=== PATIENT | male | born 1935 | race Caucasian/White ===

== ENCOUNTER 2024-05-06 09:57 | Inpatient (IN) | payer OTHER, BC ==
[~2024-05-06] VITALS: Ht 172.7 cm; Wt 57.3 kg
[~2024-05-06 09:57] MED LIST: LISI20TA30 PO; NOR10 PO; ROSU10TA2 PO
[2024-05-06 10:00] VITALS: BP_SYST 144; PULSE 64; RESP 18; TEMP 97.6; O2SAT 98
[2024-05-06 10:26] LABS: BASOPHILS # (AUTO) 0.1 K/uL (0.0-0.2); BASOPHILS % (AUTO) 0.6 % (0.0-2.0); EOSINOPHILS # (AUTO) 0.3 K/uL (0.0-0.4); EOSINOPHILS % (AUTO) 3.1 % (0.0-4.0); HEMATOCRIT 42.1 % (36-54); HEMOGLOBIN 13.8 g/dL (14.0-18.0); LYMPHOCYTES # (AUTO) 0.8 K/uL (1.0-5.5); LYMPHOCYTES % (AUTO) 8.5 % (20.5-51.5); MEAN CORPUSCULAR HEMOGLOBIN 32 pg (27-31); MEAN CORPUSCULAR HGB CONC 33 % (32-36); MEAN CORPUSCULAR VOLUME 98 fL (79.0-98.0); MONOCYTES # (AUTO) 0.7 K/uL (0.0-1.0); MONOCYTES % (AUTO) 7.1 % (1.7-9.3); NEUTROPHILS % (AUTO) 80.7 % (40.0-70.0); PLATELET COUNT (AUTO) 334 K/uL (130-430); RED BLOOD CELL COUNT(AUTO) 4.27 MIL/uL (4.2-6.2); RED CELL DISTRIBUTION WIDTH 14.1 % (9.0-15.0); WHITE BLOOD COUNT (AUTO) 9.9 K/uL (4.8-10.8)
[2024-05-06 10:56] LABS: INR 1.2 (0.80-1.20); PROTHROMBIN TIME 11.9 SECS (9.5-12.5)
[2024-05-06 10:58] LABS: ALANINE AMINOTRANSFERASE 44 U/L (12-78); ALBUMIN 4.1 g/dL (3.4-4.8); AMYLASE 42 U/L (0-100); ANION GAP 8 (5-15); ASPARTATE AMINOTRANSFERASE 60 U/L (10-37); BILIRUBIN,DIRECT 0.3 mg/dL (0.0-0.3); CALCIUM 9.3 mg/dL (8.4-11.0); CARBON DIOXIDE 24 mmol/L (23-29); CHLORIDE 108 mmol/L (98-107); CREATININE 2.31 mg/dL (0.55-1.30); GLUCOSE 114 mg/dL (74-106); LIPASE 45 U/L (16-77); SODIUM SERUM 140 mmol/L (136-145); TOTAL BILIRUBIN 0.8 mg/dL (0.0-1.0); TOTAL PROTEIN, SERUM 6.9 g/dL (6.4-8.3); UREA NITROGEN, BLOOD 62 mg/dL (8-21)
[2024-05-06 11:01] LABS: POTASSIUM 6.5 mmol/L (3.5-5.1)
[2024-05-06] MEDS ORDERED: ONDANSETRON HCL 4 MG/2 ML VIAL IVP PRN (11:45)
[2024-05-06] MEDS: DEXTROSE 50% JECT 50 ML DISP.SYRIN IVP ONE ×2 (11:51→13:00)
[2024-05-06] MEDS: SODIUM BICARBONATE 8.4% JECT 50 MEQ/50 ML SYRINGE IVP ONE ×2 (11:51→19:38)
[2024-05-06] MEDS: SODIUM POLYSTYRENE SULFONATE 15 GM/60 ML UDBTL PO ONE (11:52)
[2024-05-06] MEDS: INSULIN REGULAR, HUMAN 10 UNITS/0.1 ML, 3 ML VIAL IVP ONE ×2 (11:54→13:00)
[2024-05-06] MEDS ORDERED: SPIR25TA6 PO (12:42)
[2024-05-06] MEDS ORDERED: HYDR25TA4 PO (12:43)
[2024-05-06] MEDS ORDERED: DAPA5TAB PO (12:46)
[2024-05-06] MEDS ORDERED: OXYB10TA30 PO (12:46)
[2024-05-06] MEDS ORDERED: SACU1TAB PO (12:46)
[2024-05-06] MEDS ORDERED: CARV3.1246 PO (12:46)
[2024-05-06] MEDS ORDERED: TERA5CAP4 PO (12:46)
[2024-05-06] MEDS ORDERED: ASPI-1393 PO (12:46)
[2024-05-06] MEDS ORDERED: ATOR40TA68 PO (12:46)
[2024-05-06] MEDS ORDERED: ROSU20TA73 PO (12:46)
[2024-05-06] MEDS ORDERED: CLOP75TA32 PO (12:46)
[2024-05-06] MEDS ORDERED: FLUT1BLS5 INH (12:46)
[2024-05-06] MEDS: SODIUM BICARBONATE 0.5 MEQ/ML VIAL INJ ONE (13:00)
[2024-05-06] MEDS: NACL 0.9% 1,000 ML IV SCH (13:00)
[2024-05-06] MEDS: NACL 0.9% 1,000 ML IV ONE (13:06)
[2024-05-06 13:22] LABS: BILIRUBIN,URINE NEGATIVE (NEGATIVE); BLOOD, URINE NEGATIVE (NEGATIVE); CLARITY/URINE CLEAR (CLEAR); GLUCOSE,URINE 2+ (NEGATIVE); KETONES,URINE NEGATIVE (NEGATIVE); LEUKOCYTE ESTERASE ,URINE NEGATIVE (NEGATIVE); NITRITE, URINE NEGATIVE (NEGATIVE); PROTEIN URINE NEGATIVE (NEGATIVE); UROBILINOGEN,URINE 0.2 (0.2-1.0)
[2024-05-06 13:27] LABS: COLOR,URINE Y (YELLOW)
[2024-05-06] MEDS ORDERED: metroNIDAZOLE 500 mg/NS 100 ML IV SCH (14:00)
[2024-05-06 16:00] VITALS: BP_SYST 141; PULSE 68; RESP 16; TEMP 97.6; O2SAT 97
[2024-05-06] MEDS: SODIUM ZIRCONIUM CYCLOSILICATE 10 GM POWD.PACK PO ONE ×2 (16:33→21:23)
[2024-05-06] MEDS: BUMEX 1 MG/4 ML VIAL IVP ONE (16:34)
[2024-05-06 17:17] VITALS: O2SAT 97
[2024-05-06 18:47] LABS: ANION GAP 8 (5-15); CALCIUM 9.2 mg/dL (8.4-11.0); CARBON DIOXIDE 27 mmol/L (23-29); CHLORIDE 108 mmol/L (98-107); CREATININE 2.18 mg/dL (0.55-1.30); GLUCOSE 143 mg/dL (74-106); SODIUM SERUM 143 mmol/L (136-145); UREA NITROGEN, BLOOD 63 mg/dL (8-21)
[2024-05-06 19:32] LABS: BILIRUBIN,URINE NEGATIVE (NEGATIVE); BLOOD, URINE NEGATIVE (NEGATIVE); CLARITY/URINE CLEAR (CLEAR); GLUCOSE,URINE TRACE (NEGATIVE); KETONES,URINE NEGATIVE (NEGATIVE); LEUKOCYTE ESTERASE ,URINE NEGATIVE (NEGATIVE); NITRITE, URINE NEGATIVE (NEGATIVE); PROTEIN URINE NEGATIVE (NEGATIVE); UROBILINOGEN,URINE 0.2 (0.2-1.0)
[2024-05-06 19:51] LABS: COLOR,URINE STRAW (YELLOW)
[2024-05-06 20:00] VITALS: BP_SYST 109; PULSE 60; RESP 18; TEMP 97.9; O2SAT 99
[2024-05-06] MEDS ORDERED: CIPROFLOXACIN LACT 200 MG/D5W 100 ML IV SCH (21:00)
[2024-05-06 23:05] LABS: URINE SODIUM, RANDOM 69 mmol/L (40-220)
[2024-05-07] VITALS: BP_SYST 121; PULSE 60; RESP 18; TEMP 98.2; O2SAT 98
[2024-05-07 04:43] LABS: BASOPHILS # (AUTO) 0.1 K/uL (0.0-0.2); BASOPHILS % (AUTO) 0.7 % (0.0-2.0); EOSINOPHILS # (AUTO) 0.4 K/uL (0.0-0.4); EOSINOPHILS % (AUTO) 3.2 % (0.0-4.0); HEMATOCRIT 37.8 % (36-54); HEMOGLOBIN 12.4 g/dL (14.0-18.0); LYMPHOCYTES # (AUTO) 1.1 K/uL (1.0-5.5); LYMPHOCYTES % (AUTO) 10.2 % (20.5-51.5); MEAN CORPUSCULAR HEMOGLOBIN 32 pg (27-31); MEAN CORPUSCULAR HGB CONC 33 % (32-36); MEAN CORPUSCULAR VOLUME 97 fL (79.0-98.0); MONOCYTES % (AUTO) 9.1 % (1.7-9.3); NEUTROPHILS # (AUTO) 8.6 K/uL (1.8-7.7); NEUTROPHILS % (AUTO) 76.8 % (40.0-70.0); PLATELET COUNT (AUTO) 335 K/uL (130-430); RED BLOOD CELL COUNT(AUTO) 3.89 MIL/uL (4.2-6.2); RED CELL DISTRIBUTION WIDTH 14.2 % (9.0-15.0); WHITE BLOOD COUNT (AUTO) 11.2 K/uL (4.8-10.8)
[2024-05-07 05:19] LABS: ALANINE AMINOTRANSFERASE 31 U/L (12-78); ALBUMIN 3.4 g/dL (3.4-4.8); ANION GAP 7 (5-15); ASPARTATE AMINOTRANSFERASE 23 U/L (10-37); CALCIUM 8.4 mg/dL (8.4-11.0); CARBON DIOXIDE 28 mmol/L (23-29); CHLORIDE 109 mmol/L (98-107); CREATININE 2.02 mg/dL (0.55-1.30); GLUCOSE 80 mg/dL (74-106); PHOSPHORUS 4.3 mg/dL (2.7-4.5); POTASSIUM 4.4 mmol/L (3.5-5.1); SODIUM SERUM 144 mmol/L (136-145); TOTAL BILIRUBIN 0.7 mg/dL (0.0-1.0); TOTAL PROTEIN, SERUM 5.7 g/dL (6.4-8.3); UREA NITROGEN, BLOOD 59 mg/dL (8-21)
[2024-05-07] MEDS: NACL 0.9% 1,000 ML IV ONE (08:57)
[2024-05-07 12:42] VITALS: BP_SYST 118; PULSE 63; RESP 17; TEMP 98; O2SAT 98
[2024-05-07 20:02] LABS: CHOLESTEROL 66 mg/dL (<200); HDL CHOLESTEROL 33 mg/dL (>45); TRIGLYCERIDES 74 mg/dL (30-150)
[2024-05-08 08:06] LABS: % FREE PSA 40.2 % (.); FREE PSA 2.09 ng/mL; PROSTATE SPECIFIC AG TOTAL 5.2 ng/mL (0.0-4.0)
== END 2024-05-07 15:15 | disposition left against medical advice (07) | DRG 640 ==
LOC: SED 09:57 → STU 11:40
PROVIDERS: ADMIT Student in an Organized Health Care Education/Training Program; ATTEND Student in an Organized Health Care Education/Training Program
DX: E87.5 Hyperkalemia (principal); N17.0 Acute kidney failure with tubular necrosis; K80.20 Calculus of gallbladder without cholecystitis without obstruction; N18.32 Chronic kidney disease, stage 3b; I12.9 Hypertensive chronic kidney disease with stage 1 through stage 4 chronic kidney disease, or unspecified chronic kidney disease; Z53.29 Procedure and treatment not carried out because of patient's decision for other reasons; Z79.899 Other long term (current) drug therapy; Z88.0 Allergy status to penicillin; Z85.07 Personal history of malignant neoplasm of pancreas
CPT/HCPCS: 36415; 71045; 76770; 80048; 80053; 80061; 80076; 81001; 81003; 82150; 82570; 83605; 83690; 83735; 84100; 84153; 84302; 85025; 85610; 85730; 93005; 96375; 99285; G0378; J1815; J3490